=== PATIENT | female | born 1990 | race Caucasian/White ===

== ENCOUNTER 2018-06-30 13:00 | Emergency (ER) | payer OTHER ==
[~2018-06-30] VITALS: Ht 160 cm; Wt 82.0 kg
--- NOTE | 2018-06-30 13:54 | NUR ---
ALON ARRIVES TO ER WITH LEFT SIDED FLANK PAIN THAT BEGAN LUNCH TIME TODAY. SHE HAS A HX OF KIDNEY STONES FROM TWO YEARS AGO, AND STATES IT FEELS SOMEWHAT SIMALAR. GOWNED, IN BED, RAILS UP. URINE SENT TO LAB FOR ANALYSIS LABELED IN HER PRESENCE.
--- NOTE | 2018-06-30 13:58 | NUR ---
BLOOD COLLECTED BY LAB.
--- NOTE | 2018-06-30 14:09 | NUR ---
patient returned from ct scan
[2018-06-30 14:17] LABS: BASOPHILS # (AUTO) 0.06 x10^3/uL (0-0.1); BASOPHILS % (AUTO) 1 % (0-1); EOSINOPHILS # (AUTO) 0.27 x10^3/uL (0-0.4); EOSINOPHILS % (AUTO) 3 % (1-7); LYMPHOCYTES # (AUTO) 2.88 x10^3/uL (1-3.4); LYMPHOCYTES % (AUTO) 29 % (22-44); MD NO; MEAN CORPUSCULAR HEMOGLOBIN 29.1 pg (27.0-34.8); MEAN CORPUSCULAR HGB CONC 33.8 g/dL (32.4-35.8); MEAN CORPUSCULAR VOLUME 86.1 fL (80-100); MEAN PLATELET VOLUME 7.3 fL (7.4-10.4); MONOCYTES # (AUTO) 0.64 x10^3/uL (0.2-0.8); MONOCYTES % (AUTO) 7 % (2-9); NEUTROPHILS # (AUTO) 6.12 x10^3/uL (1.8-6.8); NEUTROPHILS % (AUTO) 61 % (42-75); PLATELET COUNT 404 x10^3/uL (130-400); RED BLOOD COUNT 4.72 x10^6/uL (3.82-5.3); RED CELL DISTRIBUTION WIDTH 13.7 % (9.6-15.2)
[2018-06-30 14:26] LABS: ALBUMIN 3.8 g/dL (3.4-5.0); ANION GAP 6 mmol/L (5-15); CALCIUM 9.1 mg/dL (8.5-10.1); CHLORIDE 108 mmol/L (98-107)
[2018-06-30 14:27] LABS: MICROSCOPIC INDICATED
[2018-06-30 14:31] LABS: ALANINE AMINOTRANSFERASE 25 U/L (12-78); ALKALINE PHOSPHATASE 101 U/L (45-117); BILIRUBIN,TOTAL 0.6 mg/dL (0.2-1.0); TOTAL PROTEIN 7.8 g/dL (6.4-8.2)
[2018-06-30 14:38] LABS: CULTURE INDICATED? YES
[2018-06-30 15:30] VITALS: BP 132/78
--- NOTE | 2018-06-30 15:32 | NUR ---
DISCHARGE TEACHING REVIEWED, PATIENT SHOWS UNDERSTANDING. PATIENT LEFT WITH FOLLOW UP INSTRUCTIONS, SHOWS UNDERSTANDING.
== END 2018-06-30 15:51 | disposition home or self-care (01) ==
LOC: ED 15:45
DX: N20.2 Calculus of kidney with calculus of ureter (principal); R31.9 Hematuria, unspecified; R10.12 Left upper quadrant pain; R10.32 Left lower quadrant pain
CPT/HCPCS: 36415; 74176; 80053; 81001; 83690; 84703; 85025; 87086; 99284

== ENCOUNTER 2019-05-20 13:51 | Emergency (ER) | payer OTHER ==
[~2019-05-20] VITALS: Ht 160 cm; Wt 82.8 kg
[~2019-05-20 13:51] MED LIST: ALBU0.63 NEB; HYDR-826 PO; SERT100T PO
[2019-05-20 14:49] LABS: BASOPHILS # (AUTO) 0.03 x10^3/uL (0-0.1); BASOPHILS % (AUTO) 0 % (0-1); EOSINOPHILS # (AUTO) 0.29 x10^3/uL (0-0.4); EOSINOPHILS % (AUTO) 3 % (1-7); LYMPHOCYTES # (AUTO) 3.29 x10^3/uL (1-3.4); LYMPHOCYTES % (AUTO) 31 % (22-44); MD NO; MEAN CORPUSCULAR HEMOGLOBIN 28.7 pg (27.0-34.8); MEAN CORPUSCULAR HGB CONC 32.9 g/dL (32.4-35.8); MEAN CORPUSCULAR VOLUME 87.1 fL (80-100); MEAN PLATELET VOLUME 7.3 fL (7.4-10.4); MONOCYTES # (AUTO) 0.69 x10^3/uL (0.2-0.8); MONOCYTES % (AUTO) 7 % (2-9); NEUTROPHILS # (AUTO) 6.21 x10^3/uL (1.8-6.8); NEUTROPHILS % (AUTO) 59 % (42-75); PLATELET COUNT 390 x10^3/uL (130-400); RED BLOOD COUNT 4.75 x10^6/uL (3.82-5.3); RED CELL DISTRIBUTION WIDTH 13.4 % (9.6-15.2)
[2019-05-20 14:55] LABS: ALBUMIN 3.5 g/dL (3.4-5.0); ANION GAP 8 mmol/L (5-15); CALCIUM 8.9 mg/dL (8.5-10.1); CHLORIDE 109 mmol/L (98-107)
[2019-05-20 15:02] LABS: ALANINE AMINOTRANSFERASE 30 U/L (12-78); ALKALINE PHOSPHATASE 127 U/L (45-117); BILIRUBIN,TOTAL 0.2 mg/dL (0.2-1.0); CREATININE 0.91 mg/dL (0.55-1.02); TROPONIN I < 0.015 ng/mL (0.000-0.045)
--- NOTE | 2019-05-20 17:01 | NUR ---
FORGER HELPER: PT WALKED BACK FROM LOBBY TO ROOM AT THIS TIME WITH EMT. STEADY UPON AMBULATION.
[2019-05-20] MEDS ORDERED: KETOROLAC 30 MG/1 ML IM ONE (17:30)
[2019-05-20] MEDS ORDERED: KETOROLAC 30 MG/1 ML ONE (17:51)
[2019-05-20 17:59] VITALS: BP 134/98
== END 2019-05-20 18:35 | disposition home or self-care (01) ==
LOC: ED 18:33
DX: R07.89 Other chest pain (principal); R06.00 Dyspnea, unspecified; R11.2 Nausea with vomiting, unspecified; R06.02 Shortness of breath
CPT/HCPCS: 36415; 71046; 80053; 84484; 85025; 85379; 93005; 96372; 99285; J1885

== ENCOUNTER 2019-05-22 21:13 | Emergency (ER) | payer OTHER ==
[~2019-05-22] VITALS: Ht 160 cm; Wt 82.5 kg
[2019-05-22 21:15] VITALS: BP 163/101
--- NOTE | 2019-05-22 22:26 | NUR ---
md at bedside to assess pt
[2019-05-22] MEDS ORDERED: ONDANSETRON ODT 4 MG ONE (22:42)
[2019-05-22] MEDS ORDERED: ACETAMINOPHEN 325 MG TABLET ONE (22:42)
[2019-05-22] MEDS ORDERED: ACETAMINOPHEN 325 MG TABLET PO ONE (23:00)
[2019-05-22] MEDS ORDERED: ONDANSETRON ODT 4 MG PO ONE (23:00)
== END 2019-05-22 22:54 | disposition home or self-care (01) ==
LOC: ED 22:52
DX: S09.90XA Unspecified injury of head, initial encounter (principal); S09.92XA Unspecified injury of nose, initial encounter; R11.2 Nausea with vomiting, unspecified; X58.XXXA Exposure to other specified factors, initial encounter; Y93.89 Activity, other specified; Y92.098 Other place in other non-institutional residence as the place of occurrence of the external cause; Y99.8 Other external cause status
CPT/HCPCS: 99283; Q0162

== ENCOUNTER 2019-09-13 09:31 | Emergency (ER) | payer OTHER ==
[~2019-09-13] VITALS: Ht 160 cm; Wt 78.0 kg
[2019-09-13] MEDS ORDERED: LISI2.5T PO (09:52)
[2019-09-13] MEDS ORDERED: PROP10TA16 PO (09:53)
[2019-09-13] MEDS ORDERED: BUDE10.22 MC (09:53)
[2019-09-13] MEDS ORDERED: MORPHINE SULFATE 4 MG/ML, 1ML IVPush PRN (10:00)
[2019-09-13 10:18] LABS: BASOPHILS # (AUTO) 0.07 x10^3/uL (0-0.1); BASOPHILS % (AUTO) 1 % (0-1); EOSINOPHILS # (AUTO) 0.19 x10^3/uL (0-0.4); EOSINOPHILS % (AUTO) 2 % (1-7); LYMPHOCYTES # (AUTO) 2.16 x10^3/uL (1-3.4); LYMPHOCYTES % (AUTO) 19 % (22-44); MD NO; MEAN CORPUSCULAR HGB CONC 33.1 g/dL (32.4-35.8); MEAN CORPUSCULAR VOLUME 87.5 fL (80-100); MEAN PLATELET VOLUME 6.9 fL (7.4-10.4); MONOCYTES # (AUTO) 0.66 x10^3/uL (0.2-0.8); MONOCYTES % (AUTO) 6 % (2-9); NEUTROPHILS # (AUTO) 8.07 x10^3/uL (1.8-6.8); NEUTROPHILS % (AUTO) 72 % (42-75); PLATELET COUNT 366 x10^3/uL (130-400); RED BLOOD COUNT 4.64 x10^6/uL (3.82-5.3); RED CELL DISTRIBUTION WIDTH 13.7 % (9.6-15.2)
[2019-09-13 10:24] LABS: CHLORIDE 107 mmol/L (98-107)
--- NOTE | 2019-09-13 10:27 | NUR ---
ua sent. vss. declines more morphine/zofran at this time, pain still controlled. as
[2019-09-13 10:29] LABS: ALBUMIN 3.4 g/dL (3.4-5.0); ANION GAP 7 mmol/L (5-15); CALCIUM 8.5 mg/dL (8.5-10.1)
[2019-09-13 10:32] LABS: ALANINE AMINOTRANSFERASE 26 U/L (12-78); ALKALINE PHOSPHATASE 103 U/L (45-117); BILIRUBIN,TOTAL 0.5 mg/dL (0.2-1.0); CREATININE 0.77 mg/dL (0.55-1.02); TOTAL PROTEIN 7.7 g/dL (6.4-8.2)
[2019-09-13 10:54] LABS: MICROSCOPIC INDICATED
[2019-09-13] MEDS ORDERED: MORPHINE SULFATE 4 MG/ML, 1ML ONE (10:59)
[2019-09-13] MEDS ORDERED: ONDANSETRON 2MG/ML, 2ML ONE (10:59)
[2019-09-13] MEDS ORDERED: SODIUM CHLORIDE FLUSH 10ML SYR IVF ONE (11:00)
[2019-09-13] MEDS ORDERED: ONDANSETRON 2MG/ML, 2ML IVPush ONE (11:00)
--- NOTE | 2019-09-13 11:04 | NUR ---
meds per mar. to ct. stable. as
[2019-09-13 11:24] VITALS: BP 126/85
--- NOTE | 2019-09-13 11:52 | NUR ---
ct shows kidney stone. awaiting mariluz urine. nad. as
--- NOTE | 2019-09-13 12:23 | NUR ---
pt up for recheck. no needs at this time, pain controlled. as
== END 2019-09-13 12:58 | disposition home or self-care (01) ==
LOC: ED 12:14
DX: N20.1 Calculus of ureter (principal); R11.2 Nausea with vomiting, unspecified
CPT/HCPCS: 36415; 74176; 80053; 81001; 83690; 84703; 85025; 87086; 96374; 96375; 99284; J2270; J2405